=== PATIENT | female | born 1980 | race Caucasian/White ===

== ENCOUNTER 2016-11-09 15:12 | Emergency (ER) | payer SELFPAY ==
[~2016-11-09] VITALS: Ht 170.2 cm; Wt 60.0 kg
[~2016-11-09 15:12] MED LIST: Z.0.BCPILL PO
[2016-11-09 15:16] VITALS: BP 124/58; PULSE 73; RESP 16; TEMP 97.8; O2SAT 100
[2016-11-09] MEDS ORDERED: IBUPROFEN 800 MG TAB PO ONE (17:00)
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
[2016-11-09] MEDS ORDERED: IBUP800T23 PO (17:54)
== END 2016-11-09 18:15 | disposition home or self-care (01) ==
LOC: NETRI 15:12
DX: S90.01XA Contusion of right ankle, initial encounter (principal); S90.31XA Contusion of right foot, initial encounter; W20.8XXA Other cause of strike by thrown, projected or falling object, initial encounter
CPT/HCPCS: 73610; 73630; 99283; L1906

== ENCOUNTER 2017-05-07 06:33 | Inpatient (IN) | payer MEDICAID, OTHER ==
[~2017-05-07 06:33] MED LIST changes: +IBUP800T23 PO; -Z.0.BCPILL PO
[2017-05-07] MEDS ORDERED: LACTATED RINGER'S 1000 ML INJ 1,000 ML IV PRN (06:55)
[2017-05-07] MEDS ORDERED: LIDOCAINE HCL 1% 50 ML VIAL INFIL PRN (07:00)
[2017-05-07] MEDS ORDERED: SODIUM CHLORID 0.9% 500 ML INJ 500 ML IV PRN (07:00)
[2017-05-07] MEDS ORDERED: ONDANSETRON HCL 4 MG/2 ML VIAL IV PRN (07:00)
[2017-05-07] MEDS ORDERED: CITRIC ACID-SODIUM CITRATE LIQ 30 ML UDC PO SCH (07:00)
[2017-05-07] MEDS ORDERED: MINERAL OIL 10 ML VIAL TOPICAL PRN (07:00)
[2017-05-07] MEDS ORDERED: LIDOCAINE HCL 1% 50 ML VIAL I-DERMAL PRN (07:00)
--- NOTE | 2017-05-07 07:02 | HHI.HP ---
HPI Chief Complaint Contractions Date Seen: May 07, 2017 Time Seen: 06:55 Travel History International Travel<30 Days: No Contact w/Intl Traveler<30Days: No Known Affected Area: No History of Present Illness HPI 37-year-old white female now at the 38 weeks who presents brought in by the ambulance for contraction activity. She lives in [place] and was brought here. She is unregistered she still had 1 visit in this and was up in [place] 3 months ago, she denies bleeding or rupture the membranes, heart rate tracing is reactive and she is gutierrez every 5 minutes Weeks Gestation: 38 Para: 0 : 1 History Social History Alcohol Use: No Tobacco Use: No Substance Abuse: No Allergies-Medications (Allergen,Severity, Reaction): Coded Allergies: No Known Allergies (Verified , 11/09/16) Home Meds Active Scripts Ibuprofen (Ibuprofen) 800 Mg Tab, 800 MG PO Q6HR Y for PAIN, #30 TAB 0 Refills Prov:Nori Campbell 11/09/16 Review of Systems General / Constitutional: No: Fever, Weight Gain, Chills, Other Eyes: No: Diploplia, Blurred Vision, Visual changes, Pain, Photophobia HENT: No: Headaches, Vertigo, Lightheadedness Cardiovascular: No: Irregular Rhythm, Chest Pain or Discomfort, Palpitations, Tachycardia, Syncope, Varicosities, Edema, Cyanosis Respiratory: No: Cough, Short of Breath, Other Gastrointestinal: No: Nausea, Vomiting, Diarrhea Genitourinary: No: Decreased Urinary Output, Oliguria Musculoskeletal: No: Limited ROM, Weakness, Cramping, Edema, Pain Skin: No Rash, No Itching, No Dryness, No Lumps, No Change in Pigmentation, No Change in Nails, No Alopecia, No Lesions Neurologic: No: Weakness, Dizziness, Syncope, Focal Abnormalities, Coordination Problem, Headache, Slurred Speech, Seizures Psychiatric: No: Depression, Suicidal Ideations, Homicidal Ideation Endocrine: No: Heat Intolerance, Cold Intolerance, Polydipsia, Polyuria, Other Physical Exam Narrative GENERAL: Well-nourished, well-developed patient. SKIN: Warm and dry. HEAD: Normocephalic and atraumatic. EYES: No scleral icterus. No injection or drainage. ENT: No nasal drainage noted. Mucous membranes pink. Airway patent. NECK: Supple, trachea midline. No JVD. CARDIOVASCULAR: Regular rate and rhythm without murmurs, gallops, or rubs. RESPIRATORY: Breath sounds equal bilaterally. No accessory muscle use. BREASTS: Bilateral exam showed no masses , no retractions, no nipple discharge. ABDOMEN/GI: Abdomen soft, non-tender, bowel sounds present, no rebound, no guarding Gravid to [38-] weeks size Fundal Height: [38-] GENITOURINARY: External Genitalia: intact and normal in appearance BUS glands: [-] Cervix: [-] Dilatation: [-5] Effacement: [-100] Station: [0-] Presentation: [-vtx] Membranes: [intact ] Uterine Contractions: [reg-] FHT's: Category: [-1] Baseline: [133-] Reactive: [yes-] Variability: [mod-] Decels: [-none] EXTREMITIES: No cyanosis or edema. BACK: Nontender without obvious deformity. No CVA tenderness. NEUROLOGICAL: Awake and alert. Motor and sensory grossly within normal limits. Five out of 5 muscle strength in all muscle groups. Normal speech. Caprini VTE Risk Assessment Caprini VTE Risk Assessment: No/Low Risk (score <= 1) Caprini Risk Assessment Model Point Value = 1 Point Value = 2 Point Value = 3 Point Value = 5 Age 41-60 Minor surgery BMI > 25 kg/m2 Swollen legs Varicose veins or History of unexplained or recurrent spontaneous Oral contraceptives or hormone replacement Sepsis (< 1 month) Serious lung disease, including pneumonia (< 1 month) Abnormal pulmonary function Acute myocardial infarction Congestive heart failure (< 1 month) History of inflammatory bowel disease Medical patient at bed rest Age 61-74 Arthroscopic surgery Major open surgery (> 45 min) Laparoscopic surgery (> 45 min) Malignancy Confined to bed (> 72 hours) Immobilizing plaster cast Central venous access Age >= 75 History of VTE Family history of VTE Factor V Leiden Prothrombin [id number] Lupus anticoagulant Anticardiolipin antibodies Elevated serum homocysteine Heparin-induced thrombocytopenia Other congenital or acquired thrombophilia Stroke (< 1 month) Elective arthroplasty Hip, pelvis, or leg fracture Acute spinal cord injury (< 1 month) Prophylaxis Regimen Total Risk Factor Score Risk Level Prophylaxis Regimen 0-1 Low Early ambulation 2 Moderate Order ONE of the following: *Sequential Compression Device (SCD) *Heparin 5000 units SQ BID 3-4 Higher Order ONE of the following medications: *Heparin 5000 units SQ TID *Enoxaparin/Lovenox 40 mg SQ daily (WT < 150 kg, CrCl > 30 mL/min) *Enoxaparin/Lovenox 30 mg SQ daily (WT < 150 kg, CrCl > 10-29 mL/min) *Enoxaparin/Lovenox 30 mg SQ BID (WT < 150 kg, CrCl > 30 mL/min) AND/OR *Sequential Compression Device (SCD) 5 or more Highest Order ONE of the following medications: *Heparin 5000 units SQ TID (Preferred with Epidurals) *Enoxaparin/Lovenox 40 mg SQ daily (WT < 150 kg, CrCl > 30 mL/min) *Enoxaparin/Lovenox 30 mg SQ daily (WT < 150 kg, CrCl > 10-29 mL/min) *Enoxaparin/Lovenox 30 mg SQ BID (WT < 150 kg, CrCl > 30 mL/min) AND *Sequential Compression Device (SCD) Data Data Orders Orders Admit To Inpatient (05/07/17 ) Vital Signs (Adult) .Per protocol (05/07/17 06:55) Heart (05/07/17 06:55) Amnioinfusion (05/07/17 06:55) Urinary Catheter Management .ONCE (05/07/17 06:55) Diet Liquid (05/07/17 Breakfast) Lactated Ringer's 1000 Ml Inj (Lr 1000 M (05/07/17 06:55) Lactated Ringer's 1000 Ml Inj (Lr 1000 M (05/07/17 06:55) Sodium Chlorid 0.9% 500 Ml Inj (Ns 500 M (05/07/17 07:00) Sodium Chlor 0.9% 1000 Ml Inj (Ns 1000 M (05/07/17 07:15) Lidocaine 1% Inj (50 Ml) (Xylocaine 1% I (05/07/17 07:00) Citric Acid-Sodium Citrate Liq (Bicitra (05/07/17 07:00) Ondansetron Inj (Zofran Inj) (05/07/17 07:00) Fentanyl Inj (Fentanyl Inj) (05/07/17 07:00) Fentanyl Inj (Fentanyl Inj) (05/07/17 07:00) Penicillin G Potassium Inj (Pfizerpen-G (05/07/17 07:00) Penicillin G Potassium Inj (Pfizerpen-G (05/07/17 11:00) Complete Blood Count With Diff (05/07/17 06:55) Hold Clot (05/07/17 06:55) Abo/Rh Blood Type (05/07/17 06:55) Urinalysis - C+S If Indicated (05/07/17 06:55) Type And Screen (05/07/17 06:55) No Care Spec Serology (05/07/17 06:55) Resp Oxygen Non Rebreathe Mask (05/07/17 ) ^ Epidural / Intrathecal Infus (05/07/17 06:55) Oxytocin 30 Units-500ml Premix (Pitocin (05/07/17 07:00) Lidocaine 1% Inj (50 Ml) (Xylocaine 1% I (05/07/17 07:00) Light Mineral Oil (Muri-Lube Oil) (05/07/17 07:00) Group B Strep Pcr (Rapid) (05/07/17 06:57) Assessment/Plan Assessment and Plan The patient is 37-year-old white female at 38 weeks with essentially no care presents 1 visit 1 time but presents complaining of contractions. No bleeding or leakage of fluid. heart rate tracing is reactive and she is gutierrez regularly. Cervix 5 cm 100% and 0 station vertex presentation. Impression is active labor at term plan is admission and labor management anticipate vaginal delivery Romel Enamorado II, MD May 07, 2017 07:02
[2017-05-07] MEDS ORDERED: SODIUM CHLOR 0.9% 1000 ML INJ 1,000 ML IV PRN (07:15)
[2017-05-07 07:27] LABS: BACTERIA, URINE RARE /hpf; BLOOD, URINE SMALL (NEG); COMMENT (UR) CULT NOT INDICATED; CULTURE IF INDICATED CULT NOT INDICATED; GLUCOSE,URINE NEG (NEG); HYALINE CAST, URINE 1 /lpf (RARE); KETONE, URINE 40 mg/dL (NEG); MUCUS URINE FEW /lpf (OCC); NITRITE,URINE NEG (NEG); PH, URINE 5.5 (5.0-8.5); SQUAMOUS EPITHELIAL CELL URINE 3 /hpf (0-5); URINE COLOR YELLOW (YELLW/STRAW)
[2017-05-07] MEDS ORDERED: OXYTOCIN 30 UNITS-500ML PREMIX 500 ML IV ONE ×2 (07:30→17:15)
[2017-05-07 07:51] LABS: AUTOMATED NEUTROPHIL # 18.7 TH/MM3 (1.8-7.7); BASOPHIL % 0.1 % (0.0-2.0); HEMATOCRIT 38.3 % (35.0-46.0); HEMO FLAGS DIFF FINAL; LYMPH % 4.4 % (9.0-44.0); LYMPHOCYTE # 0.9 TH/MM3 (1.0-4.8); MEAN CELL VOLUME 87.7 FL (80.0-100.0); MEAN CORPUSCULAR HEMOGLOBIN 29.1 PG (27.0-34.0); MEAN CORPUSCULAR HGB CONC 33.1 % (32.0-36.0); MONO % 1.6 % (0.0-8.0); NEUT % 93.9 % (16.0-70.0); PLATELET COUNT 264 TH/MM3 (150-450); RED BLOOD COUNT 4.37 MIL/MM3 (4.00-5.30); RED CELL DISTRIBUTION WIDTH 15.2 % (11.6-17.2); WHITE BLOOD COUNT 19.9 TH/MM3 (4.0-11.0)
[2017-05-07] MEDS ORDERED: PENICILLIN G POTASSIUM INJ 5,000,000 UNITS in SODIUM CHLORIDE 0.9% INJ 100 ML IV ONE (08:00)
[2017-05-07] MEDS ORDERED: fentaNYL 2MCG-BUPIV 0.125% INJ 100 ML ONE (08:30)
[2017-05-07] MEDS: LACTATED RINGER'S 1000 ML INJ 1,000 ML IV SCH ×2 (08:43→12:41)
[2017-05-07] MEDS ORDERED: ePHEDrine/NS 25 MG/5 ML SYR IV PRN (10:00)
[2017-05-07] MEDS ORDERED: NO SYSTEM NARCOTICS PRN (10:00)
[2017-05-07] MEDS ORDERED: fentaNYL 2MCG-BUPIV 0.125% 100 ML EPIDURAL SCH (10:00)
[2017-05-07] MEDS ORDERED: DO NOT ADMINISTER ANTICOAGULANTS PRN (10:00)
[2017-05-07] MEDS ORDERED: OXYTOCIN 10 UNIT/ML AMP IV ONE (12:00)
[2017-05-07] MEDS ORDERED: LACTATED RINGER'S 1000 ML INJ 1,000 ML IV ONE (12:00)
[2017-05-07] MEDS ORDERED: PHENYLEPH/NS 1000 MCG/10 ML SYR IV ONE (12:00)
[2017-05-07] MEDS ORDERED: LIDOCAINE 2%/EPINEPHrine PF 1:200,000 20ML SDV INFIL ONE (12:00)
[2017-05-07] MEDS ORDERED: ceFAZolin INJ 1,000 MG VIAL IV ONE (12:00)
[2017-05-07] MEDS ORDERED: ONDANSETRON HCL 4 MG/2 ML VIAL IV PUSH ONE (12:00)
[2017-05-07] MEDS ORDERED: MORPHINE SULFATE PF 5 MG/10 ML VIAL EPIDURAL ONE (12:00)
[2017-05-07] MEDS: PENICILLIN G POTASSIUM INJ 2,500,000 UNITS in SODIUM CHLORIDE 0.9% INJ 100 ML IV SCH ×2 (12:42→16:00)
--- NOTE | 2017-05-07 12:42 | PD.LABORPN ---
Subjective Subjective Patient is comfortable with her epidural. Objective Objective Pelvic Exam: SVE complete/complete/0 which is a change from 8/complete/-1 upon my assumption of care for the patient FHT's: Category 1 FHTs are with heart tones in the 120s with moderate long -term variability, good accelerations, no decelerations [place]: Every 3 minutes Weeks Gestation: 38 Gest Age Assessed Date: May 07, 2017 Gest Age Assessed Time: 12:40 Pt started active labor?: Yes Active labor start date: May 07, 2017 Active labor start time: 10:00 Medical induction of labor?: No Artificial rupture of membrane: No Assessment/Plan Assessment and Plan Assessment/plan: 1. IUP at 38.6 2. Active labor: Continue expectant management 3. GBS unknown 4. well-being: Reassuring testing with category 1 heart rate tracing, continue EFM Miriam Teran MD May 07, 2017 12:42
[2017-05-07] MEDS ORDERED: OXYTOCIN 30 UNITS-500ML PREMIX 500 ML IV SCH (13:00)
[2017-05-07] MEDS ORDERED: ACETAMINOPHEN 1000 MG/100 ML VIAL IV SCH (16:00)
[2017-05-07] MEDS ORDERED: ACETAMINOPHEN 1000 MG/100 ML 100 ML IV ONE ×2 (16:26→17:15)
[2017-05-07] MEDS ORDERED: ONDANSETRON HCL 4 MG/2 ML VIAL IV PUSH PRN (17:15)
[2017-05-07] MEDS ORDERED: ZOLPIDEM TARTRATE 5 MG TAB PO PRN (17:15)
[2017-05-07] MEDS ORDERED: ACETAMINOPHEN 325 MG TAB PO PRN (17:15)
[2017-05-07] MEDS ORDERED: SIMETHICONE 80 MG CHEWABLE TAB PO PRN (17:15)
[2017-05-07] MEDS ORDERED: SODIUM CHLORIDE 0.9% FLUSH 10 ML FLUSH IV FLUSH PRN (17:15)
--- NOTE | 2017-05-07 18:05 | MP ---
cc: MIRIAM TERAN MD DATE OF SURGERY: 05/07/2017. PREOPERATIVE DIAGNOSIS: 1. Intrauterine at 38 weeks and 6 days. 2. No care. 3. inability to tolerate labor with repetitive severe variables with pushing. 4. Protracted labor. 5. Probable OP presentation. 6. Thick meconium. POSTOPERATIVE DIAGNOSIS: 1. Intrauterine at 38 weeks and 6 days. 2. No care. 3. inability to tolerate labor with repetitive severe variables with pushing. 4. Protracted labor. 5. Occiput posterior presentation. 6. Thick meconium. OPERATION: Repeat low transverse delivery, two-layer closure and no extensions by Pfannenstiel's skin incision. SURGEON: Dr. Miriam Teran. ASSISTANTS: Elizabeth Posada. INDICATIONS FOR THE PROCEDURE: The patient is a 37-year-old 1, para 0 who presented in active labor. She rapidly progressed to 9 cm; however, made no further cervical change and had a spacing out of her contractions. She slowly progressed to completely dilated but contractions were quite a bit spaced out. The decision was made to augment with Oxytocin and after a period of laboring down, the patient commenced spontaneous maternal expulsive efforts. Shortly after the onset of pushing, the fetus started having repetitive severe variables. Once the Oxytocin was stopped and the patient stopped pushing, the heart rate returned to baseline. FINDINGS: A viable male in the cephalic but OP and deflexed position with Apgars of 8 and 9 and weighing 3080 grams. The patient had normal maternal anatomy with normal fallopian tubes, uterus and ovaries. SPECIMENS REMOVED: Placenta. ESTIMATED BLOOD LOSS: 500 cc. URINE OUTPUT: Urine was not measured prior to the patient being taken to the operating room; 50 to 100 cc of clear urine at the end of the procedure; however blood was tinged in the patient room. IV FLUIDS: 1500 cc. DESCRIPTION OF THE PROCEDURE IN DETAIL: After obtaining informed consent with risks, benefits, and alternatives discussed with the patient at length including but not limited to pain, infection, bleeding, bleeding that might require blood transfusion or hysterectomy, need for repeat surgery, wound infection or breakdown, injury to other organs like the bladder, bowel, nerves and vessels and other possible complications, the patient was taken to the operating room with IV fluids running and a Gomez catheter in place. heart tones were confirmed to be at the patient's baseline in the operating room and she was prepped and draped in the normal sterile fashion after adequate anesthesia was confirmed. After an appropriate time out procedure, adequate anesthesia was once again confirmed and a scalpel was used to make a Pfannenstiel's skin incision which was carried down to the level of the fascia with the scalpel. The fascia was nicked in the midline and the fascial incision extended laterally with a curved Veras scissors. The Yaron clips were applied to the superior aspect of the fascial incision which was dissected off the underlying rectus muscle bluntly with the Bovie cautery. The Yaron clamps were applied to the inferior aspect of the fascial incision and it was dissected off in a similar fashion. The rectus muscles were in the midline and the peritoneum entered bluntly. The peritoneal incision was extended bluntly. The Jerod self-containing wound retractor was placed. The vesicouterine peritoneum was identified, grasped with pickups and entered sharply with the Metzenbaums. This incision was extended laterally and the bladder flap created digitally. The bladder blade was inserted and the lower uterine segment was thinned out with the scalpel. The hysterotomy was created bluntly and extended bluntly. The vertex was elevated to the level of the hysterotomy and delivered atraumatically. The remainder of the was delivered atraumatically. The neonatology team was present and because the baby was vigorous at delivery, instructed us to wait for 45 seconds to clamp the cord. After this 45 second delay, the cord was clamped and cut. In the meantime, the nose and mouth were suctioned with the bulb suction. The was passed off to the awaiting team. Cord blood was obtained for the nursery. The placenta was removed manually and the uterus was exteriorized and cleared of all clots and debris. The hysterotomy was repaired with #1 chromic in a running locked fashion. On the second layer, the same suture was used in an imbricating fashion after which excellent hemostasis was noted. The uterus was returned to the abdomen. The gutters were cleared of all clots and debris. The Jerod self-containing wound retractor was removed. The hysterotomy was again re-inspected and noted to be hemostatic; however, due to the viable nature of the tissue at the apices, Eldon was placed. The peritoneum was reapproximated with 3-0 Vicryl in a running fashion. The rectus muscles were examined and noted to be hemostatic. The fascia was reapproximated with #1 Vicryl in a running fashion. The subcutaneous tissue was irrigated with warm normal saline and noted to be hemostatic. The fascial closure was noted to be without defect. The skin edges were reapproximated with 3-0 Monocryl in a subcuticular fashion. Excellent hemostasis was noted. All sponge, lap and needle counts were correct x2. I performed the entire procedure myself. The patient was taken to the post-anesthesia care unit in stable condition. MD TATUM Fagan/THU /4:48 PM /5:40 PM
[2017-05-07] MEDS ORDERED: EPIDURAL-NALOXONE HCL 0.4 MG/ML AMP IV PUSH PRN (18:45)
[2017-05-07] MEDS ORDERED: EPIDURAL-DIPHENHYDRAMINE HCL 50 MG/ML VIAL IV PUSH PRN (18:45)
[2017-05-07] MEDS ORDERED: EPIDURAL-NO SYSTEMIC NARCOTICS PRN (18:45)
[2017-05-07] MEDS ORDERED: EPIDURAL-DO NOT ADMINISTER ANTICOAGULANTS PRN (18:45)
[2017-05-07] MEDS ORDERED: EPIDURAL-DIPHENHYDRAMINE HCL 50 MG CAP PO PRN (18:45)
[2017-05-07] MEDS: IBUPROFEN 600 MG TAB PO PRN (19:45)
[2017-05-07 20:56] LABS: RUBELLA IGG ANTIBODY 83.8 IU/mL (10.0-500.0); RUBELLA STATUS IMMUNE (IMMUNE)
[2017-05-07] MEDS: SODIUM CHLORIDE 0.9% FLUSH 10 ML FLUSH IV FLUSH SCH (21:00)
[2017-05-07] MEDS ORDERED: HYDROmorphone HCL PF 1 MG/ML VIAL IV PUSH PRN (21:15)
[2017-05-07] MEDS ORDERED: LACTATED RINGER'S 1000 ML INJ 1,000 ML IV SCH (22:05)
[2017-05-08] MEDS ORDERED: OXYTOCIN 30 UNITS-500ML PREMIX 500 ML IV PRN (03:15)
[2017-05-08] MEDS: IBUPROFEN 600 MG TAB PO PRN ×3 (06:15→19:45)
[2017-05-08] MEDS: oxyCODONE/ACETAMINOPHEN 5 MG/325 MG TAB PO PRN ×3 (06:45→19:45)
--- NOTE | 2017-05-08 10:45 | HHI.OB ---
Subjective Post Operative Day: 1 Remarks Pt seen and examined this morning. Postoperative day # 1 AFVSS overnight. Incision not draining. Decreased lochia. Denies dysuria. No breast tenderness. She is feeding the baby via breast and bottle. Appetite good. No nausea or vomiting. Patient has not had a bowel movement or endorses bowel gas. Ambulating well. Denies calf pain or shortness of breath. Otherwise, she is doing well this morning and has no other concerns. Objective Result Diagram: 05/07/17 0720 Objective Remarks GENERAL: Well-nourished, well-developed patient. CARDIOVASCULAR: Regular rate and rhythm without murmurs, gallops, or rubs. RESPIRATORY: Breath sounds equal bilaterally. No accessory muscle use. ABDOMEN/GI: Abdomen soft, non-tender, bowel sounds present. Incision: Clean, dry and intact. Fundus: Firm, non-tender at umbilicus. GENITOURINARY: Light to moderate bleeding. EXTREMITIES: No cyanosis or edema, non-tender, without signs of DVT. Medications and IVs Current Medications Medications (Trade) Dose Ordered Sig/Paloma Route Start Time Stop Time Status Last Admin Lactated Ringer's 1,000 ml @ 100 mls/hr Q10H IV 05/07/17 22:05 05/08/17 18:04 Oxytocin 500 ml @ 100 mls/hr UNSCH X1 PRN IV 05/08/17 03:15 05/09/17 03:14 (NS Flush) 2 ml BID IV FLUSH 05/07/17 21:00 05/07/17 21:00 (NS Flush) 2 ml UNSCH PRN IV FLUSH 05/07/17 17:15 (Mylicon Chew) 80 mg QID PRN PO 05/07/17 17:15 (Tylenol) 650 mg Q6H PRN PO 05/07/17 17:15 (Motrin) 600 mg Q6H PRN PO 05/07/17 17:15 05/08/17 06:15 (Percocet 5-325 Mg) 1 tab Q4H PRN PO 05/07/17 17:15 05/08/17 06:45 (Percocet 5-325 Mg) 2 tab Q4H PRN PO 05/07/17 17:15 (Trisha-Colace) 2 tab Q12H PRN PO 05/07/17 17:15 (Ambien) 5 mg HS PRN PO 05/07/17 17:15 (M-M-R Ii Inj) 0.5 ml ONCE ONCE SQ 05/08/17 16:00 05/08/17 16:01 (Boostrix Inj) 0.5 ml ONCE ONCE IM 05/08/17 16:00 05/08/17 16:01 (Zofran Inj) 4 mg Q6H PRN IV PUSH 05/07/17 17:15 Miscellaneous Information NO SYSTEMIC NARCOTICS TO BE GIVEN FO... UNSCH PRN .XX 05/07/17 18:45 05/08/17 18:44 (Narcan Inj) 0.4 mg UNSCH PRN IV PUSH 05/07/17 18:45 05/08/17 18:44 (Benadryl Inj) 25 mg Q6H PRN IV PUSH 05/07/17 18:45 05/08/17 18:44 (Benadryl) 50 mg Q6H PRN PO 05/07/17 18:45 05/08/17 18:44 Miscellaneous Information ALL NURSING DEPARTMENTS UNSCH PRN .XX 05/07/17 18:45 05/08/17 18:44 (Dilaudid Pf Inj) 0.5 mg Q4H PRN IV PUSH 05/07/17 21:15 05/07/17 21:30 Assessment/Plan Assessment and Plan 37 y/o female who is postoperative day #1 s/p op located secondary to distress. -Continue routine care. -Percocet and Motrin PRN pain. -Encouraged OOB. Advised pelvic rest for 6 wks. Patient will need follow-up appointment in 1-2 weeks. -Re: ctrl, she would like to discuss her options at her follow-up appointment. -Anticipate discharge in 1-2 days pending clinical course. lyn Teran MD Discharge Planning 1-2 days Torito Oseguera MD R2 May 08, 2017 10:45
[2017-05-08] MEDS: DOCUSATE SODIUM 50 MG/SENNA 8.6 MG TAB PO PRN (11:39)
[2017-05-08] MEDS ORDERED: DIPHTH/TETANUS/ACEL PERTUSSIS (BOOSTER) 0.5 ML VIAL/PFS IM ONE (16:00)
[2017-05-08] MEDS ORDERED: MEASLES, MUMPS, RUBELLA VACCINE 0.5 ML VIAL SQ ONE (16:00)
[2017-05-08 17:37] VITALS: BP 115/70; PULSE 100; RESP 17; TEMP 98.1
[2017-05-09] MEDS: IBUPROFEN 600 MG TAB PO PRN ×3 (02:30→14:54)
[2017-05-09] MEDS: oxyCODONE/ACETAMINOPHEN 5 MG/325 MG TAB PO PRN ×3 (02:30→14:53)
[2017-05-09] MEDS: DOCUSATE SODIUM 50 MG/SENNA 8.6 MG TAB PO PRN (08:40)
[2017-05-09] MEDS ORDERED: SENN1TAB PO (08:49)
[2017-05-09] MEDS ORDERED: OXYC1TAB63 PO (08:49)
[2017-05-09] MEDS: SODIUM CHLORIDE 0.9% FLUSH 10 ML FLUSH IV FLUSH SCH (09:00)
--- NOTE | 2017-05-09 09:48 | HHI.OB ---
Subjective Post Operative Day: 2 Remarks 37y/o female who is POD#2 s/p CXN due to distress -Continue routine care. -Percocet and Motrin PRN pain. -Encouraged OOB. Advised pelvic rest for 6 wks. Will need a f/u appt. in 1 wk for incision check. -Re: ctrl, she is undecided -D/c in 1-2 more days. dw OB attending Objective Vitals/I&O Vital Signs Date Time Temp Pulse Resp B/P (MAP) Pulse Ox O2 Delivery O2 Flow Rate FiO2 05/08/17 17:37 98.1 100 17 115/70 (85) Result Diagram: 05/07/17 0720 Objective Remarks GENERAL: Well-nourished, well-developed patient. CARDIOVASCULAR: Regular rate and rhythm without murmurs, gallops, or rubs. RESPIRATORY: Breath sounds equal bilaterally. No accessory muscle use. ABDOMEN/GI: Abdomen soft, non-tender, bowel sounds present. Incision: Clean, dry and intact. Fundus: Firm, non-tender at umbilicus. GENITOURINARY: Light to moderate bleeding. EXTREMITIES: No cyanosis or edema, non-tender, without signs of DVT. Medications and IVs Current Medications Medications (Trade) Dose Ordered Sig/Paloma Route Start Time Stop Time Status Last Admin (NS Flush) 2 ml BID IV FLUSH 05/07/17 21:00 05/07/17 21:00 (NS Flush) 2 ml UNSCH PRN IV FLUSH 05/07/17 17:15 (Mylicon Chew) 80 mg QID PRN PO 05/07/17 17:15 (Tylenol) 650 mg Q6H PRN PO 05/07/17 17:15 (Motrin) 600 mg Q6H PRN PO 05/07/17 17:15 05/09/17 08:40 (Percocet 5-325 Mg) 1 tab Q4H PRN PO 05/07/17 17:15 05/08/17 11:37 (Percocet 5-325 Mg) 2 tab Q4H PRN PO 05/07/17 17:15 05/09/17 08:40 (Trisha-Colace) 2 tab Q12H PRN PO 05/07/17 17:15 05/09/17 08:40 (Ambien) 5 mg HS PRN PO 05/07/17 17:15 (Zofran Inj) 4 mg Q6H PRN IV PUSH 05/07/17 17:15 (Dilaudid Pf Inj) 0.5 mg Q4H PRN IV PUSH 05/07/17 21:15 05/07/17 21:30 Assessment/Plan Assessment and Plan 37 y/o female who is postoperative day #1 s/p op located secondary to distress. -Continue routine care. -Percocet and Motrin PRN pain. -Encouraged OOB. Advised pelvic rest for 6 wks. Patient will need follow-up appointment in 1-2 weeks. -Re: ctrl, she would like to discuss her options at her follow-up appointment. -Anticipate discharge in 1-2 days pending clinical course. dw Dr. Jeffry MD Discharge Planning 1-2 days Homer Baca MD, R2 May 09, 2017 09:48
--- NOTE | 2017-05-09 15:57 | HHI.DCPOC ---
Discharge Care Plan Diagnosis: (1) delivery delivered Report Symptoms to Your Doctor -Temperature above 100.5 degrees -Redness, of incision or excessive or foul smelling drainage -Unusual pain or calf pain -Increased vaginal bleeding -Painful or difficulty urinating -Feelings of extreme sadness or anxiety after 2 weeks Goals to Promote Your Health * To prevent worsening of your condition and complications * To maintain your health at the optimal level Directions to Meet Your Goals Take your medications as prescribed Follow your dietary instruction Follow activity as directed Ensure plenty of rest for recovery Drink fluids for hydration Keep your appointments as scheduled Take your immunizations and boosters as scheduled If your symptoms worsen call your PCP, if no PCP go to Urgent Care Center or Emergency Room Smoking is Dangerous to Your Health. Avoid second hand smoke Call the 24-hour crisis hotline for domestic abuse at Homer Baca MD, R2 May 09, 2017 15:57
== END 2017-05-09 17:43 | disposition home or self-care (01) | DRG 766 ==
LOC: HOBED 06:33 → H2EA 06:58 → H1EA 17:44
PROVIDERS: ADMIT Obstetrics & Gynecology Maternal & Fetal Medicine; ATTEND Obstetrics & Gynecology Maternal & Fetal Medicine
PROC: 10D00Z1 Extraction of Products of Conception, Low, Open Approach (ICD-10-PCS; principal; 2017-05-07)
DX: O76 Abnormality in fetal heart rate and rhythm complicating labor and delivery (principal); O77.0 Labor and delivery complicated by meconium in amniotic fluid; Z37.0 Single live birth; Z3A.38 38 weeks gestation of pregnancy
CPT/HCPCS: 36415; 59025; 80074; 81001; 85025; 86592; 86703; 86762; 86850; 86900; 86901; 87081; 87150; 90715; J0131; J0690; J1170; J2274; J2370; J2405; J2540; J2590; J7120